=== PATIENT | female | born 1950 | race Caucasian/White ===

== ENCOUNTER 2020-07-01 13:26 | Emergency (ER) | payer MEDICARE, BC ==
[~2020-07-01] VITALS: Ht 160 cm; Wt 92.1 kg
[~2020-07-01 13:26] MED LIST: NOHOMEMEDICATIONS
[2020-07-01] MEDS ORDERED: [UNRECOGNIZED DRUG - OTHER] (13:44)
[2020-07-01] MEDS ORDERED: DIABETES MED (13:45)
[2020-07-01 14:28] VITALS: BP 140/87
== END 2020-07-01 14:35 | disposition home or self-care (01) ==
LOC: M.ERS 13:26
DX: Z53.21 Procedure and treatment not carried out due to patient leaving prior to being seen by health care provider (principal)